=== PATIENT | female | born 1945 | race Caucasian/White ===

== ENCOUNTER 2019-07-05 08:51 | Inpatient (IN) ==
[2019-07-01 16:17] LABS: Basophils # 0.2 10*3/uL (0.0-0.2); Basophils % 1.4 % (0.0-0.8); Eosinophils # 0.6 10*3/uL (0.0-0.87); Eosinophils % 4.9 % (0.00-10.9); Hematocrit 47.7 VOL% (35.7-47.0); Hemoglobin 15.8 GM/DL (12.0-16.0); Immature Granulocytes % 0.3 %; Immature Granulocytes Absolute 0.04 #; Lymphocytes # 4.2 10*3/uL (1.4-4.0); Lymphocytes % 35.2 % (21.3-54.2); Mean Corpuscular HGB Conc 33.1 GM/DL (32-36); Mean Corpuscular Volume 94.6 FL (87-102); Mean Platelet Volume 9.3 FL (9.6-12.0); Monocytes % 6.1 % (1.7-12.7); Neutrophils % 52.1 % (38.7-73.9); Platelet Count 279 T/CUMM (130-400); Red Blood Count 5.04 MC/CUMM (3.8-5.5); Red Cell Distribution Width 12.8 % (9.3-17.3); White Blood Count 11.8 T/CUMM (4-12)
[2019-07-01 16:51] LABS: Albumin 3.9 G/DL (3.4-5.0); Bilirubin,Total 0.6 MG/DL (0.2-1.0); Calcium 9.5 MG/DL (8.5-10.1); Osmolality,Calculated 285.8 MOS/KG (273-304); Total Protein 7.5 G/DL (6.4-8.3)
[~2019-07-05 08:51] MED LIST: ACETAMINOPHEN 500 MG TABLET PO ONE; ALVIMOPAN 12 MG CAPSULE PO ONE; DIAZEPAM 5 MG TABLET PO ONE; ERTAPENEM 1,000 MG in SODIUM CHLORIDE 0.9% 100 ML IV ONE; FAMOTIDINE 20 MG TABLET PO ONE; GABAPENTIN 400 MG CAPSULE PO ONE
[2019-07-05] MEDS: ALBUTEROL/IPRATROPIUM 3 ML NEB RESP TX ONE (09:00)
[2019-07-05] MEDS ORDERED: DIAZEPAM 5 MG TABLET ONE (09:34)
[2019-07-05] MEDS ORDERED: GABAPENTIN 400 MG CAPSULE ONE (09:34)
[2019-07-05] MEDS ORDERED: ALVIMOPAN 12 MG CAPSULE ONE (09:35)
[2019-07-05] MEDS ORDERED: ERTAPENEM 1,000 MG VIAL ONE (09:35)
[2019-07-05] MEDS ORDERED: FAMOTIDINE 20 MG TABLET ONE (10:16)
[2019-07-05] MEDS: LACTATED RINGERS 1,000 ML IV SCH ×2 (10:36→15:00)
[2019-07-05] MEDS ORDERED: INDOCYANINE GREEN 25 MG VIAL IV ONE (10:52)
[2019-07-05] MEDS ORDERED: LIDOCAINE 1%/EPI INJ 20 ML VIAL ONE (10:53)
[2019-07-05] MEDS ORDERED: TISSUE ADHESIVE 1 EACH APPLICATOR TOP ONE (10:53)
[2019-07-05] MEDS ORDERED: BUPIVACAINE MPF 0.25% 30 ML VIAL ONE (10:53)
[2019-07-05] MEDS ORDERED: INSULIN REGULAR 100 UNIT/ML IV STA (10:56)
[2019-07-05] MEDS ORDERED: INSULIN REGULAR 100 UNIT/ML ONE (11:00)
[2019-07-05] MEDS ORDERED: DEXAMETHASONE 4 MG/1 ML VIAL ONE (11:12)
[2019-07-05] MEDS ORDERED: LIDOCAINE 1% 5 ML VIAL ONE (11:12)
[2019-07-05] MEDS ORDERED: ROPIVACAINE 0.5% 30 ML VIAL ONE (11:12)
[2019-07-05] MEDS ORDERED: fentaNYL 100 MCG/2 ML VIAL ONE ×2 (15:23→15:33)
[2019-07-05] MEDS ORDERED: ONDANSETRON 4 MG/2 ML VIAL IV PRN ×2 (15:24→15:50)
[2019-07-05] MEDS ORDERED: ALBUTEROL 2.5 MG/3 ML NEB RESP TX PRN (15:26)
[2019-07-05] MEDS ORDERED: TRIAMTERENE/HCTZ 37.5-25 MG TABLET PO PRN (15:26)
[2019-07-05] MEDS ORDERED: GLUCAGON 1 MG VIAL IM PRN (15:27)
[2019-07-05] MEDS ORDERED: DEXTROSE 10% 25 GM/250 ML BAG IV PRN (15:27)
[2019-07-05] MEDS ORDERED: DESFLURANE 1 UNIT/15 MINUTE INH ONE (15:32)
[2019-07-05] MEDS ORDERED: LIDOCAINE 2% 5 ML VIAL ONE (15:33)
[2019-07-05] MEDS ORDERED: MIDAZOLAM 2 MG/2 ML VIAL ONE (15:33)
[2019-07-05] MEDS ORDERED: ONDANSETRON 4 MG/2 ML VIAL ONE ×2 (15:33→15:51)
[2019-07-05] MEDS ORDERED: PROPOFOL 200 MG/20 ML VIAL IV ONE (15:33)
[2019-07-05] MEDS ORDERED: ROCURONIUM 100 MG/10 ML VIAL IV ONE (15:34)
[2019-07-05] MEDS ORDERED: NEOSTIGMINE 10 MG/10 ML VIAL ONE (15:34)
[2019-07-05] MEDS ORDERED: GLYCOPYRROLATE 0.4 MG/2 ML VIAL ONE (15:34)
[2019-07-05] MEDS ORDERED: PHENYLEPHRINE 1 MG/10 ML SYRINGE IV ONE (15:34)
[2019-07-05] MEDS ORDERED: LACTATED RINGERS 1,000 ML IV ONE (15:34)
[2019-07-05] MEDS ORDERED: MEPERIDINE 25 MG/1 ML VIAL IV PRN (15:50)
[2019-07-05] MEDS: HYDROmorphone 2 MG/1 ML VIAL IV PRN ×2 (15:50→16:00)
[2019-07-05] MEDS ORDERED: HYDROmorphone 2 MG/1 ML VIAL ONE (15:51)
[2019-07-05] MEDS: INSULIN REGULAR 100 UNIT/ML SUBCUT SCH (17:10)
[2019-07-05] MEDS ORDERED: INFLUENZA VIRUS VACCINE 0.5 ML SYRINGE IM ONE (17:10)
[2019-07-05] MEDS: DEXTROSE 5% LACTATED RINGERS 1,000 ML IV SCH (17:10)
[2019-07-05] MEDS: MORPHINE 4 MG/1 ML VIAL IV PRN ×2 (17:32→22:05)
[2019-07-05] MEDS: PREGABALIN 50 MG CAPSULE PO SCH (20:16)
[2019-07-05] MEDS: cefOXitin 2,000 MG in SYRINGE 1 EACH IV SCH (20:16)
[2019-07-05] MEDS: METOPROLOL TARTRATE 25 MG TABLET PO SCH (20:17)
[2019-07-06] MEDS: INSULIN REGULAR 100 UNIT/ML SUBCUT SCH ×4 (00:10→17:44)
[2019-07-06] MEDS: DEXTROSE 5% LACTATED RINGERS 1,000 ML IV SCH ×2 (01:11→08:42)
[2019-07-06] MEDS: cefOXitin 2,000 MG in SYRINGE 1 EACH IV SCH ×2 (02:49→08:38)
[2019-07-06] MEDS: MORPHINE 4 MG/1 ML VIAL IV PRN ×2 (04:49→13:09)
[2019-07-06 04:53] LABS: Basophils % 0.2 % (0.0-0.8); Hematocrit 39.5 VOL% (35.7-47.0); Hemoglobin 13.1 GM/DL (12.0-16.0); Immature Granulocytes % 0.4 %; Immature Granulocytes Absolute 0.05 #; Lymphocytes # 1.2 10*3/uL (1.4-4.0); Lymphocytes % 9.8 % (21.3-54.2); Mean Corpuscular HGB Conc 33.2 GM/DL (32-36); Mean Corpuscular Volume 94.3 FL (87-102); Mean Platelet Volume 9.3 FL (9.6-12.0); Monocytes % 10.4 % (1.7-12.7); Neutrophils % 79.2 % (38.7-73.9); Platelet Count 238 T/CUMM (130-400); Red Blood Count 4.19 MC/CUMM (3.8-5.5); Red Cell Distribution Width 12.8 % (9.3-17.3); White Blood Count 12.4 T/CUMM (4-12)
[2019-07-06 05:10] LABS: Osmolality,Calculated 291.1 MOS/KG (273-304)
[2019-07-06] MEDS: ALBUTEROL/IPRATROPIUM 3 ML NEB RESP TX ONE (08:02)
[2019-07-06] MEDS: LEVOTHYROXINE 50 MCG TABLET PO SCH (08:36)
[2019-07-06] MEDS: amLODIPine 2.5 MG TABLET PO SCH (08:37)
[2019-07-06] MEDS: PANTOPRAZOLE 40 MG TABLET PO SCH (08:37)
[2019-07-06] MEDS: ROSUVASTATIN 10 MG TABLET PO SCH (08:37)
[2019-07-06] MEDS: ENOXAPARIN 40 MG/0.4 ML SYRINGE SUBCUT SCH (08:38)
[2019-07-06] MEDS: PREGABALIN 50 MG CAPSULE PO SCH ×3 (08:38→20:15)
[2019-07-06] MEDS ORDERED: ALUMINUM/MAGNES/SIMETH MAX STR 30 ML UDCUP PO PRN (17:13)
[2019-07-06] MEDS ORDERED: diphenhydrAMINE CAP 25 MG CAPSULE PO PRN (20:00)
[2019-07-06] MEDS: METOPROLOL TARTRATE 25 MG TABLET PO SCH (20:14)
[2019-07-07] MEDS: INSULIN REGULAR 100 UNIT/ML SUBCUT SCH ×3 (01:02→11:46)
[2019-07-07] MEDS: DEXTROSE 5% LACTATED RINGERS 1,000 ML IV SCH (05:20)
[2019-07-07] MEDS: LEVOTHYROXINE 50 MCG TABLET PO SCH (07:06)
[2019-07-07] MEDS: amLODIPine 2.5 MG TABLET PO SCH (08:35)
[2019-07-07] MEDS: ROSUVASTATIN 10 MG TABLET PO SCH (08:35)
[2019-07-07] MEDS: PANTOPRAZOLE 40 MG TABLET PO SCH (08:36)
[2019-07-07] MEDS: PREGABALIN 50 MG CAPSULE PO SCH (08:36)
[2019-07-07] MEDS: ENOXAPARIN 40 MG/0.4 ML SYRINGE SUBCUT SCH (08:37)
[2019-07-07 12:15] VITALS: BP 98/70
== END 2019-07-07 13:24 | disposition home or self-care (01) | DRG 331 ==
LOC: N.OR 08:51 → N.SDSINP 08:52 → N.3E 16:43
PROVIDERS: ADMIT Surgery; ATTEND Surgery

== ENCOUNTER 2022-09-23 17:31 | Inpatient (IN) ==
[2022-09-23] MEDS ORDERED: ALBUTEROL/IPRATROPIUM 3 ML NEB RESP TX STA (18:32)
[2022-09-23] MEDS ORDERED: PIPERACILLIN/TAZOBACTAM 3,375 MG in SODIUM CHLORIDE 0.9% 100 ML IV STA (18:32)
[2022-09-23] MEDS ORDERED: ONDANSETRON 4 MG/2 ML VIAL IV STA ×2 (18:32→22:42)
[2022-09-23 18:40] LABS: Basophils # 0.1 10*3/uL (0.0-0.2); Eosinophils # 0.1 10*3/uL (0.0-0.87); Eosinophils % 0.4 % (0.00-10.9); Hematocrit 39.8 VOL% (35.7-47.0); Hemoglobin 13.1 GM/DL (12.0-16.0); Immature Granulocytes % 11.5 %; Immature Granulocytes Absolute 1.55 #; Lymphocytes # 0.9 10*3/uL (1.4-4.0); Lymphocytes % 6.4 % (21.3-54.2); Mean Corpuscular HGB Conc 32.9 GM/DL (32-36); Mean Platelet Volume 10.3 FL (9.6-12.0); Monocytes # 0.1 10*3/uL (0.11-0.8); Monocytes % 0.7 % (1.7-12.7); Platelet Count 133 T/CUMM (130-400); Red Blood Count 4.19 MC/CUMM (3.8-5.5); Red Cell Distribution Width 13.6 % (9.3-17.3); White Blood Count 13.5 T/CUMM (4-12)
[2022-09-23] MEDS ORDERED: ALBUTEROL 2.5 MG/3 ML NEB RESP TX ONE (18:46)
[2022-09-23] MEDS ORDERED: LACTATED RINGERS 1,000 ML IV ONE (18:47)
[2022-09-23 18:54] LABS: PT Patient Result 10.8 SECS (10.1-12.1)
[2022-09-23] MEDS ORDERED: ALBUTEROL NEB SOLN 5 MG/ML 20 ML/BOTTLE CONT NEB SCH (19:00)
[2022-09-23 19:02] LABS: Albumin 2.8 G/DL (3.4-5.0); Bilirubin,Total 1.4 MG/DL (0.20-1.00); Calcium 8.8 MG/DL (8.5-10.1); Osmolality,Calculated 282.4 MOS/KG (273-304); Potassium 3.8 MMOL/L (3.5-5.1); Total Protein 6.9 G/DL (6.4-8.2)
[2022-09-23 19:23] LABS: Band Neutrophils 2 % (0-10); Lymphocytes 7 % (20-55); Total Cells Counted 100
[2022-09-23 19:26] LABS: Platelet Estimate Normal
[2022-09-23] MEDS ORDERED: SODIUM CHLORIDE 0.9% 1,000 ML IV STA (20:21)
[2022-09-23] MEDS ORDERED: FUROSEMIDE 40 MG/4 ML VIAL IV STA (22:14)
[2022-09-23] MEDS ORDERED: methylPREDNISolone SOD SUC 125 MG/2 ML VIAL IV STA (22:16)
[2022-09-23] MEDS ORDERED: MORPHINE 2 MG/1 ML SYRINGE IV STA (22:42)
[2022-09-23] MEDS ORDERED: ONDANSETRON ODT 4 MG TABLET PO PRN (22:42)
[2022-09-23] MEDS ORDERED: PROMETHAZINE 25 MG TABLET PO PRN (22:42)
[2022-09-23] MEDS ORDERED: GLUCAGON 1 MG VIAL IM PRN (22:42)
[2022-09-23] MEDS ORDERED: ONDANSETRON 4 MG/2 ML VIAL IV PRN (22:42)
[2022-09-23] MEDS ORDERED: MORPHINE 2 MG/1 ML SYRINGE IV PRN (22:42)
[2022-09-23] MEDS ORDERED: DEXTROSE 10% 250 ML BAG IV PRN (22:48)
[2022-09-23] MEDS ORDERED: ALBUTEROL 2.5 MG/3 ML NEB RESP TX PRN (22:50)
[2022-09-23] MEDS: ALBUTEROL/IPRATROPIUM 3 ML NEB RESP TX SCH (23:03)
[2022-09-23 23:26] LABS: Hyaline Casts,Urine 1 /LPF (0-3); Mucus,Urine Occasional /LPF (Occasional); RBC,Urine 1 /HPF (0-4); Squamous Epithelial Cell,Urine Occasional /HPF (0-10)
[2022-09-23 23:27] LABS: Bilirubin,Urine Negative (Negative); Blood, Urine Trace mg/dL (Negative); Glucose,Urine (UA) 100 mg/dL (Negative); Ketones,Urine Negative (Negative); Nitrite,Urine Negative (Negative); Protein,Urine 30 mg/dL (Negative); Urine Appearance Clear (Clear); Urine Color Yellow (Yellow); Urine Specific Gravity 1.015 (1.001-1.035); Urine Urobilinogen 0.2 eU/dL (<2.0); Urine pH 5.5 (4.5-8.0)
[2022-09-24] MEDS: MEROPENEM 500 MG in SODIUM CHLORIDE 0.9% 100 ML IV SCH ×4 (00:08→23:12)
[2022-09-24] MEDS: SODIUM CHLORIDE 0.9% 1,000 ML IV SCH ×2 (00:08→21:10)
[2022-09-24] MEDS: ALBUTEROL/IPRATROPIUM 3 ML NEB RESP TX SCH ×5 (02:51→19:16)
[2022-09-24] MEDS: INSULIN REGULAR 100 UNIT/ML SUBCUT SCH ×4 (04:27→17:55)
[2022-09-24 04:49] LABS: Basophils # 0.1 10*3/uL (0.0-0.2); Basophils % 1.1 % (0.0-0.8); Hematocrit 37.4 VOL% (35.7-47.0); Hemoglobin 12.2 GM/DL (12.0-16.0); Immature Granulocytes % 14.2 %; Immature Granulocytes Absolute 0.66 #; Lymphocytes # 0.2 10*3/uL (1.4-4.0); Lymphocytes % 3.4 % (21.3-54.2); Mean Corpuscular HGB Conc 32.6 GM/DL (32-36); Mean Corpuscular Volume 95.9 FL (87-102); Mean Platelet Volume 10.3 FL (9.6-12.0); Monocytes % 0.6 % (1.7-12.7); Neutrophils % 80.7 % (38.7-73.9); Platelet Count 102 T/CUMM (130-400); Red Cell Distribution Width 13.5 % (9.3-17.3); White Blood Count 4.7 T/CUMM (4-12)
[2022-09-24 05:22] LABS: Albumin 2.5 G/DL (3.4-5.0); Bilirubin,Total 1.1 MG/DL (0.20-1.00); Osmolality,Calculated 293.5 MOS/KG (273-304); Potassium 3.4 MMOL/L (3.5-5.1); Total Protein 6.3 G/DL (6.4-8.2)
[2022-09-24 05:31] LABS: Eosinophils 1 % (0-10); Lymphocytes 2 % (20-55); Total Cells Counted 100
[2022-09-24] MEDS ORDERED: KETOROLAC 30 MG/1 ML VIAL IV STA (05:48)
[2022-09-24] MEDS: LEVOTHYROXINE 50 MCG TABLET PO SCH (07:01)
[2022-09-24 10:12] LABS: Hematocrit 35.8 VOL% (35.7-47.0); Hemoglobin 11.5 GM/DL (12.0-16.0); Immature Granulocytes % 11.5 %; Immature Granulocytes Absolute 0.47 #; Lymphocytes # 0.3 10*3/uL (1.4-4.0); Lymphocytes % 6.1 % (21.3-54.2); Mean Corpuscular HGB Conc 32.1 GM/DL (32-36); Mean Corpuscular Volume 96.5 FL (87-102); Mean Platelet Volume 10.8 FL (9.6-12.0); Monocytes % 0.5 % (1.7-12.7); Neutrophils % 80.9 % (38.7-73.9); Platelet Count 101 T/CUMM (130-400); Red Blood Count 3.71 MC/CUMM (3.8-5.5); Red Cell Distribution Width 13.4 % (9.3-17.3); White Blood Count 4.1 T/CUMM (4-12)
[2022-09-24] MEDS: amLODIPine 2.5 MG TABLET PO SCH (10:58)
[2022-09-24] MEDS: DOCUSATE SODIUM 100 MG CAPSULE PO SCH ×2 (10:59→21:09)
[2022-09-24] MEDS: GLIMEPIRIDE 4 MG TABLET PO SCH (11:02)
[2022-09-24] MEDS: MULTIVITAMIN (CENTRUM) TABLET PO SCH (11:03)
[2022-09-24] MEDS: ROSUVASTATIN 10 MG TABLET PO SCH (11:06)
[2022-09-24] MEDS: PREGABALIN 50 MG CAPSULE PO SCH ×3 (11:07→21:09)
[2022-09-24] MEDS: PANTOPRAZOLE 40 MG TABLET PO SCH (11:08)
[2022-09-24] MEDS: ENOXAPARIN 40 MG/0.4 ML SYRINGE SUBCUT SCH (11:14)
[2022-09-24] MEDS: FILGRASTIM-SNDZ 300 MCG/0.5 ML SYRINGE SUBCUT SCH (11:16)
[2022-09-24 11:27] LABS: Band Neutrophils 4 % (0-10); Lymphocytes 7 % (20-55); Platelet Estimate Adequate; Total Cells Counted 100
[2022-09-24 11:28] LABS: Anisocytosis Slight
[2022-09-24] MEDS: INSULIN ASPART PROTAMINE/ASPART 70/30 100 UNIT/ML SUBCUT SCH ×2 (13:26→16:52)
[2022-09-24] MEDS: ACETAMINOPHEN 325 MG TABLET PO PRN (15:41)
[2022-09-24] MEDS: OXYMETAZOLINE 0.05% NASAL SPRAY 15 ML BOTTLE BOTH NARES SCH (17:51)
[2022-09-24] MEDS: SODIUM CHLORIDE 0.65% NASAL SPRAY 45 ML BOTTLE BOTH NARES PRN (17:52)
[2022-09-24] MEDS ORDERED: INSULIN ASPART PROTAMINE/ASPART 70/30 100 UNIT/ML SUBCUT SCH (21:00)
[2022-09-24] MEDS: MONTELUKAST 10 MG TABLET PO SCH (21:09)
[2022-09-24] MEDS: METOPROLOL TARTRATE 25 MG TABLET PO SCH (21:13)
[2022-09-25] MEDS: ALBUTEROL/IPRATROPIUM 3 ML NEB RESP TX SCH ×4 (00:01→19:17)
[2022-09-25] MEDS: INSULIN REGULAR 100 UNIT/ML SUBCUT SCH ×4 (00:36→18:23)
[2022-09-25] MEDS: ACETAMINOPHEN 325 MG TABLET PO PRN ×2 (00:40→18:20)
[2022-09-25] MEDS: SODIUM CHLORIDE 0.65% NASAL SPRAY 45 ML BOTTLE BOTH NARES PRN (00:45)
[2022-09-25 03:50] LABS: Albumin 2.1 G/DL (3.4-5.0); Bilirubin,Total 0.6 MG/DL (0.20-1.00); Calcium 7.9 MG/DL (8.5-10.1); Osmolality,Calculated 297.6 MOS/KG (273-304); Potassium 3.3 MMOL/L (3.5-5.1); Total Protein 4.9 G/DL (6.4-8.2)
[2022-09-25 05:34] LABS: Basophils % 1.1 % (0.0-0.8); Hematocrit 32.6 VOL% (35.7-47.0); Hemoglobin 10.6 GM/DL (12.0-16.0); Immature Granulocytes % 11.5 %; Immature Granulocytes Absolute 0.21 #; Lymphocytes # 0.6 10*3/uL (1.4-4.0); Lymphocytes % 30.8 % (21.3-54.2); Mean Corpuscular HGB Conc 32.5 GM/DL (32-36); Mean Corpuscular Volume 96.7 FL (87-102); Mean Platelet Volume 10.4 FL (9.6-12.0); Monocytes % 1.6 % (1.7-12.7); Platelet Count 89 T/CUMM (130-400); Red Blood Count 3.37 MC/CUMM (3.8-5.5); Red Cell Distribution Width 13.2 % (9.3-17.3); White Blood Count 1.8 T/CUMM (4-12)
[2022-09-25] MEDS: LEVOTHYROXINE 50 MCG TABLET PO SCH (05:52)
[2022-09-25 06:11] LABS: Lymphocytes 35 % (20-55); Total Cells Counted 100
[2022-09-25 06:12] LABS: Platelet Estimate Decreased
[2022-09-25] MEDS: OXYMETAZOLINE 0.05% NASAL SPRAY 15 ML BOTTLE BOTH NARES SCH (08:11)
[2022-09-25] MEDS: PREGABALIN 50 MG CAPSULE PO SCH ×3 (08:21→21:14)
[2022-09-25] MEDS: GLIMEPIRIDE 4 MG TABLET PO SCH (08:21)
[2022-09-25] MEDS: MULTIVITAMIN (CENTRUM) TABLET PO SCH (08:21)
[2022-09-25] MEDS: PANTOPRAZOLE 40 MG TABLET PO SCH (08:21)
[2022-09-25] MEDS: ROSUVASTATIN 10 MG TABLET PO SCH (08:21)
[2022-09-25] MEDS: DOCUSATE SODIUM 100 MG CAPSULE PO SCH ×2 (08:22→21:15)
[2022-09-25] MEDS: ENOXAPARIN 40 MG/0.4 ML SYRINGE SUBCUT SCH (08:22)
[2022-09-25] MEDS: amLODIPine 2.5 MG TABLET PO SCH (08:22)
[2022-09-25] MEDS: FILGRASTIM-SNDZ 300 MCG/0.5 ML SYRINGE SUBCUT SCH (08:25)
[2022-09-25] MEDS: MEROPENEM 500 MG in SODIUM CHLORIDE 0.9% 100 ML IV SCH ×3 (08:28→23:34)
[2022-09-25] MEDS: INSULIN ASPART PROTAMINE/ASPART 70/30 100 UNIT/ML SUBCUT SCH ×2 (08:28→15:57)
[2022-09-25] MEDS: POTASSIUM CHLORIDE 20 MEQ TABLET PO SCH (10:23)
[2022-09-25] MEDS: SODIUM CHLORIDE 0.9% 1,000 ML IV SCH ×2 (15:17→19:34)
[2022-09-25] MEDS ORDERED: methylPREDNISolone SOD SUC 40 MG/1 ML VIAL IV ONE (19:36)
[2022-09-25] MEDS: ZALEPLON 5 MG CAPSULE PO SCH (21:15)
[2022-09-25] MEDS: MONTELUKAST 10 MG TABLET PO SCH (21:15)
[2022-09-25] MEDS: METOPROLOL TARTRATE 25 MG TABLET PO SCH (21:16)
[2022-09-26] MEDS: INSULIN REGULAR 100 UNIT/ML SUBCUT SCH ×4 (00:09→18:42)
[2022-09-26] MEDS: ALBUTEROL/IPRATROPIUM 3 ML NEB RESP TX SCH ×4 (01:13→19:51)
[2022-09-26 05:42] LABS: Basophils % 2.2 % (0.0-0.8); Eosinophils % 2.2 % (0.00-10.9); Hematocrit 31.4 VOL% (35.7-47.0); Hemoglobin 10.1 GM/DL (12.0-16.0); Immature Granulocytes % 8.7 %; Immature Granulocytes Absolute 0.04 #; Lymphocytes # 0.3 10*3/uL (1.4-4.0); Lymphocytes % 58.7 % (21.3-54.2); Mean Corpuscular HGB Conc 32.2 GM/DL (32-36); Mean Corpuscular Volume 96.9 FL (87-102); Mean Platelet Volume 10.4 FL (9.6-12.0); Monocytes % 4.3 % (1.7-12.7); Neutrophils % 23.9 % (38.7-73.9); Platelet Count 88 T/CUMM (130-400); Red Blood Count 3.24 MC/CUMM (3.8-5.5); Red Cell Distribution Width 13.5 % (9.3-17.3)
[2022-09-26 05:43] LABS: White Blood Count 0.5 T/CUMM (4-12)
[2022-09-26] MEDS: LEVOTHYROXINE 50 MCG TABLET PO SCH (05:54)
[2022-09-26 05:57] LABS: Albumin 2.2 G/DL (3.4-5.0); Bilirubin,Total 0.5 MG/DL (0.20-1.00); Calcium 8.3 MG/DL (8.5-10.1); Potassium 4.2 MMOL/L (3.5-5.1); Total Protein 5.4 G/DL (6.4-8.2)
[2022-09-26] MEDS: MEROPENEM 500 MG in SODIUM CHLORIDE 0.9% 100 ML IV SCH ×3 (06:04→22:11)
[2022-09-26 06:12] LABS: Eosinophils 10 % (0-10); Lymphocytes 52 % (20-55); Microcytosis Slight; Total Cells Counted 100
[2022-09-26 06:13] LABS: Platelet Estimate Decreased
[2022-09-26] MEDS: PREGABALIN 50 MG CAPSULE PO SCH ×3 (08:48→22:08)
[2022-09-26] MEDS: DOCUSATE SODIUM 100 MG CAPSULE PO SCH ×2 (08:48→22:08)
[2022-09-26] MEDS: amLODIPine 2.5 MG TABLET PO SCH (08:48)
[2022-09-26] MEDS: ROSUVASTATIN 10 MG TABLET PO SCH (08:48)
[2022-09-26] MEDS: AZELASTINE NASAL 137 MCG/SPRAY 30 ML BOTTLE BOTH NARES SCH ×2 (08:49→22:09)
[2022-09-26] MEDS: POTASSIUM CHLORIDE 20 MEQ TABLET PO SCH (08:49)
[2022-09-26] MEDS: PANTOPRAZOLE 40 MG TABLET PO SCH (08:49)
[2022-09-26] MEDS: ENOXAPARIN 40 MG/0.4 ML SYRINGE SUBCUT SCH (08:49)
[2022-09-26] MEDS: GLIMEPIRIDE 4 MG TABLET PO SCH (08:49)
[2022-09-26] MEDS: MULTIVITAMIN (CENTRUM) TABLET PO SCH (08:49)
[2022-09-26] MEDS: INSULIN ASPART PROTAMINE/ASPART 70/30 100 UNIT/ML SUBCUT SCH ×2 (08:50→16:56)
[2022-09-26] MEDS: FILGRASTIM-SNDZ 300 MCG/0.5 ML SYRINGE SUBCUT SCH (08:57)
[2022-09-26] MEDS: SODIUM CHLORIDE 0.9% 1,000 ML IV SCH (15:47)
[2022-09-26] MEDS: MONTELUKAST 10 MG TABLET PO SCH (22:07)
[2022-09-26] MEDS: ZALEPLON 5 MG CAPSULE PO SCH (22:08)
[2022-09-26] MEDS: METOPROLOL TARTRATE 25 MG TABLET PO SCH (22:09)
[2022-09-26] MEDS: OXYMETAZOLINE 0.05% NASAL SPRAY 15 ML BOTTLE BOTH NARES SCH (22:10)
[2022-09-26] MEDS: ACETAMINOPHEN 325 MG TABLET PO PRN (22:16)
[2022-09-27] MEDS: ALBUTEROL/IPRATROPIUM 3 ML NEB RESP TX SCH ×4 (00:07→19:29)
[2022-09-27] MEDS: INSULIN REGULAR 100 UNIT/ML SUBCUT SCH ×4 (00:59→18:10)
[2022-09-27 05:32] LABS: Basophils % 1.1 % (0.0-0.8); Eosinophils # 0.2 10*3/uL (0.0-0.87); Eosinophils % 7.7 % (0.00-10.9); Hematocrit 32.3 VOL% (35.7-47.0); Hemoglobin 10.5 GM/DL (12.0-16.0); Lymphocytes # 2.2 10*3/uL (1.4-4.0); Lymphocytes % 79.5 % (21.3-54.2); Mean Corpuscular HGB Conc 32.5 GM/DL (32-36); Mean Corpuscular Volume 97.3 FL (87-102); Mean Platelet Volume 10.1 FL (9.6-12.0); Monocytes # 0.1 10*3/uL (0.11-0.8); Monocytes % 3.3 % (1.7-12.7); Neutrophils % 8.4 % (38.7-73.9); Platelet Count 79 T/CUMM (130-400); Red Blood Count 3.32 MC/CUMM (3.8-5.5); Red Cell Distribution Width 13.3 % (9.3-17.3); White Blood Count 2.7 T/CUMM (4-12)
[2022-09-27 05:57] LABS: Band Neutrophils 1 % (0-10); Eosinophils 5 % (0-10); Lymphocytes 83 % (20-55); Total Cells Counted 100
[2022-09-27 05:57] LABS: Bilirubin,Total 0.5 MG/DL (0.20-1.00); Calcium 8.1 MG/DL (8.5-10.1); Osmolality,Calculated 287.6 MOS/KG (273-304); Potassium 3.8 MMOL/L (3.5-5.1); Total Protein 5.1 G/DL (6.4-8.2)
[2022-09-27 05:58] LABS: Microcytosis Slight
[2022-09-27 06:00] LABS: Platelet Estimate Decreased
[2022-09-27] MEDS: LEVOTHYROXINE 50 MCG TABLET PO SCH (06:45)
[2022-09-27] MEDS: MEROPENEM 500 MG in SODIUM CHLORIDE 0.9% 100 ML IV SCH ×3 (06:57→23:05)
[2022-09-27] MEDS ORDERED: METOPROLOL TARTRATE 25 MG TABLET PO ONE (09:33)
[2022-09-27] MEDS: GLIMEPIRIDE 4 MG TABLET PO SCH (09:35)
[2022-09-27] MEDS: INSULIN ASPART PROTAMINE/ASPART 70/30 100 UNIT/ML SUBCUT SCH ×2 (09:35→18:19)
[2022-09-27] MEDS: PREGABALIN 50 MG CAPSULE PO SCH ×3 (09:41→21:15)
[2022-09-27] MEDS: amLODIPine 2.5 MG TABLET PO SCH (09:41)
[2022-09-27] MEDS: ROSUVASTATIN 10 MG TABLET PO SCH (09:41)
[2022-09-27] MEDS: PANTOPRAZOLE 40 MG TABLET PO SCH (09:41)
[2022-09-27] MEDS: MULTIVITAMIN (CENTRUM) TABLET PO SCH (09:41)
[2022-09-27] MEDS: DOCUSATE SODIUM 100 MG CAPSULE PO SCH ×2 (09:42→21:15)
[2022-09-27] MEDS: ACETAMINOPHEN 325 MG TABLET PO PRN ×2 (09:42→21:15)
[2022-09-27] MEDS: POTASSIUM CHLORIDE 20 MEQ TABLET PO SCH (09:42)
[2022-09-27] MEDS: AZELASTINE NASAL 137 MCG/SPRAY 30 ML BOTTLE BOTH NARES SCH ×2 (09:44→21:15)
[2022-09-27] MEDS: FILGRASTIM-SNDZ 300 MCG/0.5 ML SYRINGE SUBCUT SCH (09:45)
[2022-09-27] MEDS: ENOXAPARIN 40 MG/0.4 ML SYRINGE SUBCUT SCH (09:46)
[2022-09-27] MEDS ORDERED: FUROSEMIDE 20 MG/2 ML VIAL IV ONE (10:18)
[2022-09-27] MEDS ORDERED: methylPREDNISolone SOD SUC 40 MG/1 ML VIAL IV ONE (10:19)
[2022-09-27] MEDS: SODIUM CHLORIDE 0.9% 1,000 ML IV SCH (15:12)
[2022-09-27] MEDS: ZALEPLON 5 MG CAPSULE PO SCH (21:14)
[2022-09-27] MEDS: MONTELUKAST 10 MG TABLET PO SCH (21:14)
[2022-09-27] MEDS: OXYMETAZOLINE 0.05% NASAL SPRAY 15 ML BOTTLE BOTH NARES SCH (21:15)
[2022-09-27] MEDS: METOPROLOL TARTRATE 25 MG TABLET PO SCH (21:16)
[2022-09-28] MEDS: ALBUTEROL/IPRATROPIUM 3 ML NEB RESP TX SCH ×3 (00:18→12:34)
[2022-09-28] MEDS: INSULIN REGULAR 100 UNIT/ML SUBCUT SCH ×3 (01:02→12:38)
[2022-09-28] MEDS: LEVOTHYROXINE 50 MCG TABLET PO SCH (06:24)
[2022-09-28] MEDS: MEROPENEM 500 MG in SODIUM CHLORIDE 0.9% 100 ML IV SCH (06:33)
[2022-09-28 06:37] LABS: Basophils # 0.1 10*3/uL (0.0-0.2); Basophils % 1.8 % (0.0-0.8); Eosinophils # 0.1 10*3/uL (0.0-0.87); Eosinophils % 1.4 % (0.00-10.9); Hematocrit 35.3 VOL% (35.7-47.0); Immature Granulocytes % 5.7 %; Immature Granulocytes Absolute 0.29 #; Lymphocytes # 1.7 10*3/uL (1.4-4.0); Lymphocytes % 33.3 % (21.3-54.2); Mean Corpuscular HGB Conc 32.6 GM/DL (32-36); Mean Corpuscular Volume 93.9 FL (87-102); Mean Platelet Volume 10.6 FL (9.6-12.0); Monocytes # 0.4 10*3/uL (0.11-0.8); Monocytes % 8.5 % (1.7-12.7); Neutrophils % 49.3 % (38.7-73.9); Platelet Count 88 T/CUMM (130-400); Red Blood Count 3.76 MC/CUMM (3.8-5.5)
[2022-09-28 06:40] LABS: Hemoglobin 11.5 GM/DL (12.0-16.0); White Blood Count 5.1 T/CUMM (4-12)
[2022-09-28] MEDS ORDERED: GLIMEPIRIDE 2 MG TABLET PO SCH (08:00)
[2022-09-28] MEDS: INSULIN ASPART PROTAMINE/ASPART 70/30 100 UNIT/ML SUBCUT SCH (08:51)
[2022-09-28 08:52] LABS: Band Neutrophils 19 % (0-10); Eosinophils 1 % (0-10); Lymphocytes 33 % (20-55); Metamyelocytes 1 %; Platelet Estimate Decreased; Total Cells Counted 100
[2022-09-28 08:53] LABS: Anisocytosis 1+
[2022-09-28] MEDS: ROSUVASTATIN 10 MG TABLET PO SCH (09:16)
[2022-09-28] MEDS: DOCUSATE SODIUM 100 MG CAPSULE PO SCH (09:16)
[2022-09-28] MEDS: AZELASTINE NASAL 137 MCG/SPRAY 30 ML BOTTLE BOTH NARES SCH (09:16)
[2022-09-28] MEDS: POTASSIUM CHLORIDE 20 MEQ TABLET PO SCH (09:16)
[2022-09-28] MEDS: METOPROLOL TARTRATE 25 MG TABLET PO SCH (09:16)
[2022-09-28] MEDS: MULTIVITAMIN (CENTRUM) TABLET PO SCH (09:16)
[2022-09-28] MEDS: ENOXAPARIN 40 MG/0.4 ML SYRINGE SUBCUT SCH (09:17)
[2022-09-28] MEDS: PREGABALIN 50 MG CAPSULE PO SCH (09:18)
[2022-09-28] MEDS: PANTOPRAZOLE 40 MG TABLET PO SCH (09:19)
[2022-09-28] MEDS: FILGRASTIM-SNDZ 300 MCG/0.5 ML SYRINGE SUBCUT SCH (09:19)
[2022-09-28 11:56] VITALS: BP 85/55
== END 2022-09-28 15:05 | disposition home or self-care (01) | DRG 809 ==
LOC: N.ED 17:31 → N.EDINP 17:31 → N.TELES 09-24 08:22
PROVIDERS: ADMIT Family Medicine; ATTEND Family Medicine